=== PATIENT | male | born 1985 | race Caucasian/White ===

== ENCOUNTER 2018-10-03 19:12 | Emergency (ER) | payer MEDICAID ==
[~2018-10-03] VITALS: Ht 175.3 cm; Wt 106.7 kg
[2018-10-03 19:15] VITALS: BP 145/88
== END 2018-10-03 20:13 | disposition left against medical advice (07) ==
LOC: ER 19:13
DX: L03.113 Cellulitis of right upper limb (principal)
CPT/HCPCS: 99281

== ENCOUNTER 2018-11-15 13:05 | Inpatient (IN) | payer MEDICAID ==
[~2018-11-15] VITALS: Ht 175.3 cm; Wt 104.5 kg
[2018-11-15 14:01] LABS: ALANINE AMINOTRANSFERASE 39 U/L (12-78); ALBUMIN 3.6 G/DL (3.4-5.0); ALBUMIN/GLOBULIN RATIO 0.8 (1.1-1.5); ALKALINE PHOSPHATASE 100 IU/L (46-116); ANION GAP 12 (8-16); ASPARTATE AMINO TRANSFERASE 14 U/L (10-37); BILIRUBIN,TOTAL 0.2 MG/DL (0.1-1.0); BLOOD UREA NITROGEN 10 MG/DL (7-18); BUN/CREATININE RATIO 10.4 (5.4-32.0); CALCIUM 8.7 MG/DL (8.5-10.1); CHLORIDE 103 MMOL/L (99-107); CREATININE 0.96 MG/DL (0.60-1.10); GLUCOSE 120 MG/DL (70-104); LIPASE 88 U/L (73-393); PROTHROMBIN TIME 9.9 SECONDS (9.0-12.0); SODIUM 141 MMOL/L (135-145); TOTAL CARBON DIOXIDE 25.7 MMOL/L (24-32); TOTAL PROTEIN 7.9 G/DL (6.4-8.2); eGFR 90 ML/MIN
[2018-11-15 14:04] LABS: BASOPHILS # (AUTO) 0.1 X10'3 (0-0.2); BASOPHILS % (AUTO) 0.7 % (0-1); EOSINOPHILS # (AUTO) 0.4 X10'3 (0-0.9); EOSINOPHILS % (AUTO) 2.7 % (0-6); HEMATOCRIT 50.1 % (42.0-52.0); HEMOGLOBIN 16.4 g/dl (14.0-17.9); LYMPHOCYTES # (AUTO) 2.6 X10'3 (1.1-4.8); LYMPHOCYTES % (AUTO) 19.9 % (21-51); MEAN CORPUSCULAR HEMOGLOBIN 29.5 PG (27.0-31.0); MEAN CORPUSCULAR HGB CONC 32.6 % (33.0-36.5); MEAN CORPUSCULAR VOLUME 90.6 FL (78-98); MEAN PLATELET VOLUME 8.6 FL (7.4-10.4); MONOCYTES # (AUTO) 0.6 X10'3 (0-0.9); MONOCYTES % (AUTO) 4.9 % (2-12); NEUTROPHILS # (AUTO) 9.4 X10'3 (1.8-7.7); NEUTROPHILS % (AUTO) 71.8 % (42-75); PLATELET COUNT 390 X10'3 (140-440); RED BLOOD COUNT 5.53 X10'6 (4.70-6.10); RED CELL DISTRIBUTION WIDTH 12.3 % (11.5-14.5); WHITE BLOOD COUNT 13.1 X10'3 (4.5-11.0)
[2018-11-15 14:39] LABS: CLARITY,URINE CLEAR (Clear); COLOR,URINE STRAW (Yellow); GLUCOSE, URINE NEGATIVE (Neg); KETONES,URINE NEGATIVE (Neg); LEUKOCYTE ESTERASE ,URINE NEGATIVE (Neg); NITRITES, URINE NEGATIVE (Neg); OCCULT BLOOD,URINE NEGATIVE (Neg); PH,URINE 7.5 (4.8-8.0); PROTEIN,URINE NEGATIVE (Neg); UROBILINOGEN,URINE 0.2 E.U/dL (0.2-1.0)
[2018-11-15 14:41] LABS: UA COLLECTION TYPE CLN CATCH MIDSTREAM
[2018-11-15] MEDS ORDERED: normal saline 1000ML IV soln IVB ONE (15:15)
[2018-11-15] MEDS ORDERED: iohexol 300mg/ml 100ml inj. ONE (15:18)
[2018-11-15] MEDS ORDERED: ondansetron/PF 4mg/2ml inj IV ONE ×2 (15:35→16:45)
[2018-11-15] MEDS: morphine 4 MG/ML inj SYRINge IV PRN ×5 (16:05→20:15)
[2018-11-15] MEDS ORDERED: piperacillin/tazo 3.375gm/50ml 50 ML IV ONE (16:45)
--- NOTE | 2018-11-15 17:35 | NUR ---
pt c/o itching to IV site after giving morphine, no redness, pt is speaking full sentences, resp even and unlabored
--- NOTE | 2018-11-15 17:45 | NUR ---
itching has resolved, pt is resting quietly
--- NOTE | 2018-11-15 17:49 | NUR ---
pt is resting quietly on bed, waiting to be evaluated by hospitalist
[2018-11-15] MEDS ORDERED: NO HOME MEDS (18:02)
--- NOTE | 2018-11-15 18:07 | NUR ---
pt moved to room 4
[2018-11-15 18:12] LABS: URINE AMPHETAMINE SCREEN NEGATIVE (Neg); URINE BARBITUATE SCREEN NEGATIVE (Neg); URINE BENZODIAZEPINES SCREEN NEGATIVE (Neg); URINE CANNABINOID SCREEN NEGATIVE (Neg); URINE COCAINE SCREEN NEGATIVE (Neg); URINE METHADONE SCREEN NEGATIVE (Neg); URINE OPIATE SCREEN NEGATIVE (Neg); URINE PHENCYCLIDINE SCREEN NEGATIVE (Neg)
--- NOTE | 2018-11-15 18:58 | NUR ---
escobar oh [phone] mother
--- NOTE | 2018-11-15 19:10 | NUR ---
at bedside with dr. avila discussing surgical procedure with patient and family
[2018-11-15] MEDS ORDERED: morphine 4 MG/ML inj SYRINge IV PRN ×2 (19:25)
[2018-11-15] MEDS ORDERED: ondansetron/PF 4mg/2ml inj IV PRN (19:25)
[2018-11-15] MEDS: normal saline 1000ml 1,000 ML IV SCH (19:52)
[2018-11-15] MEDS: piperacillin/tazo 3.375gm/50ml 50 ML IV SCH (19:52)
[2018-11-15] MEDS ORDERED: ringers solution, lacted 1,000 ML IV ONE (20:10)
--- NOTE | 2018-11-15 22:35 | NUR ---
patient in bed covers on eyes closed lights dimmed no observable s/s of acute pain/stress at this time
--- NOTE | 2018-11-15 23:21 | NUR ---
PATIUENT PLACED ON HOSPITAL BED NO S/S OF ACUTE STRESS/PAIN AT THIS TIME
[2018-11-16] VITALS (22 sets, daily range): BP systolic 99–171; BP diastolic 50–103
[2018-11-16] MEDS: piperacillin/tazo 3.375gm/50ml 50 ML IV SCH ×3 (04:10→22:35)
--- NOTE | 2018-11-16 05:31 | NUR ---
Received report from OG Osman. Awaiting patient arrival to the unit.
--- NOTE | 2018-11-16 05:50 | NUR ---
Patient arrived to the floor on hospital bed. Placed in 347A. Patient is awake and alert on room air, in no apparent distress. Call light and items of frequent use within reach. Will continue to monitor.
[2018-11-16] MEDS ORDERED: famotidine 20mg tablet PO ONE (06:00)
--- NOTE | 2018-11-16 06:24 | NUR ---
Problems reprioritized. Patient report given, questions answered & plan of care reviewed with OG Arambula.
--- NOTE | 2018-11-16 06:24 | NUR ---
Patient in room [facility]. I have received report from OG Mccray and had the opportunity to ask questions and assume patient care.
[2018-11-16] MEDS ORDERED: epiNEPHrine 1 mg/ml inj ONE (06:41)
[2018-11-16] MEDS ORDERED: BUPIVAcaine/PF 2.5mg/ml (0.25%) 10ml vial ONE (06:42)
[2018-11-16] MEDS ORDERED: fentaNYL/PF 50MCG/1 ML 2ML syringe ONE (07:18)
[2018-11-16] MEDS ORDERED: midazolam 2 mg/2 ml injection ONE (07:18)
[2018-11-16] MEDS ORDERED: LIDOcaine 2% (20mg/ml) 5ml vial ONE (07:20)
[2018-11-16] MEDS ORDERED: propofol inj 20 ML IV ONE (07:20)
[2018-11-16] MEDS ORDERED: ondansetron/PF 4mg/2ml inj ONE (07:21)
[2018-11-16] MEDS ORDERED: dexamethasone sod phosphate 4mg/ml inj. ONE (07:21)
[2018-11-16] MEDS ORDERED: glycopyrrolate 0.2mg/ml inj ONE (07:21)
[2018-11-16] MEDS ORDERED: rocuronium 10mg/ml inj IV ONE (07:21)
[2018-11-16] MEDS ORDERED: ringers solution, lacted 1,000 ML IV SCH (07:23)
[2018-11-16] MEDS ORDERED: neostigmine methylsulfate 1 MG/ML 10ml vial ONE (07:24)
[2018-11-16] MEDS ORDERED: sevoflurane 250ml liquid IH ONE (07:24)
[2018-11-16] MEDS ORDERED: hydrALAZINE 20mg/ml inj. IV PRN (07:25)
[2018-11-16] MEDS ORDERED: fentaNYL/PF 50MCG/1 ML 2ML syringe IV PRN (07:25)
[2018-11-16] MEDS ORDERED: ondansetron/PF 4mg/2ml inj IV PRN (07:25)
[2018-11-16] MEDS ORDERED: labetalol 20mg/4ml (5mg/ml) syringe IV PRN (07:25)
[2018-11-16] MEDS ORDERED: morphine 4 MG/ML inj SYRINge IV PRN ×2 (07:25)
--- NOTE | 2018-11-16 08:31 | NUR ---
Received from OR via BED, accompanied by Anesthesiologist DR BOYD and report given by Anesthesiologist. PT W/3 LAP SITES W/BANDLANI STUART, PT MAICOL, CHLOE'S. Addendum: 11/16/18 at 0858 by Jackie Danielson RN Amended: Links added.
[2018-11-16] MEDS: morphine 4 MG/ML inj SYRINge IV PRN ×3 (08:37→08:42)
[2018-11-16] MEDS: fentaNYL/PF 50MCG/1 ML 2ML syringe IV PRN ×2 (08:56→09:05)
--- NOTE | 2018-11-16 09:55 | NUR ---
Received patient from OR, pt. drowsy but alert to place, self, and events, patient respirations even and unlabored, vital signs stable at BP 126/75, HR 80, O2 sats 95% on 2L O2 will continue to monitor.
--- NOTE | 2018-11-16 10:01 | NUR ---
Report called to receiving nurse. Transferred via BED, NO Belongings, RECEIVING RN AT BEDSIDE TO RECEIVE PT, BLL, CALL LIGHT GIVEN, SIDE RAILS UP X 2, S/O AT BEDSIDE. Special Issues communicated to receiving nurse. YES. Addendum: 11/16/18 at 1018 by Jackie Danielson RN Amended: Links added.
[2018-11-16] MEDS ORDERED: FLU VACC QUAD 2018(5 YR UP)/PF 60 MCG/0.5 ML SYRINGE IM ONE (11:05)
[2018-11-16] MEDS ORDERED: pneumococcal 23-VAL P-sac vacc 25 mcg/0.5ml vial IMVAC ONE (11:05)
[2018-11-16] MEDS: ketorolac trometh. 30mg/ml inj. IV PRN ×2 (11:53→18:48)
[2018-11-16] MEDS: normal saline 1000ml 1,000 ML IV SCH ×2 (15:21→16:09)
--- NOTE | 2018-11-16 18:34 | NUR ---
Patient in room [facility]. I have received report from Ralf FOLEY and had the opportunity to ask questions and assume patient care.
--- NOTE | 2018-11-16 18:34 | NUR ---
Problems reprioritized. Patient report given, questions answered & plan of care reviewed with OG Segovia.
[2018-11-17] VITALS: BP 108/58
[2018-11-17] MEDS: normal saline 1000ml 1,000 ML IV SCH (03:25)
[2018-11-17] MEDS: piperacillin/tazo 3.375gm/50ml 50 ML IV SCH ×2 (04:01→09:12)
[2018-11-17] MEDS: ketorolac trometh. 30mg/ml inj. IV PRN (04:09)
--- NOTE | 2018-11-17 06:20 | NUR ---
Problems reprioritized. Patient report given, questions answered & plan of care reviewed with Tiffany FOLEY.
--- NOTE | 2018-11-17 06:59 | NUR ---
Patient in room [facility]. I have received report from Juliette FOLEY and had the opportunity to ask questions and assume patient care.
[2018-11-17 07:23] VITALS: BP 105/51
--- NOTE | 2018-11-17 09:21 | NUR ---
paged regarding no PO pain medications ordered. Awaiting call back.
[2018-11-17] MEDS ORDERED: acetaminophen 325mg tablet PO PRN (10:15)
[2018-11-17] MEDS ORDERED: HYDROcodone/acetaminophen 5mg/325mg tablet PO PRN (10:15)
[2018-11-17] MEDS ORDERED: HYDR-4383 PO (10:19)
--- NOTE | 2018-11-17 10:57 | NUR ---
Discharge paperwork gone over with patient and signed. Patient discharged with all belongings. W/C to front lobby.
== END 2018-11-17 10:59 | disposition home or self-care (01) | DRG 234 ==
LOC: ER 13:06 → ED HOLD 19:21 → CMPBEDREQ 11-16 05:14 → SUR 3N 11-16 05:45
PROVIDERS: ADMIT Internal Medicine; ATTEND Family Medicine
PROC: BW211ZZ Computerized Tomography (CT Scan) of Abdomen and Pelvis using Low Osmolar Contrast (ICD-10-PCS; 2018-11-15)
PROC: 0DTJ4ZZ Resection of Appendix, Percutaneous Endoscopic Approach (ICD-10-PCS; principal; 2018-11-16 07:29)
DX: K35.80 Unspecified acute appendicitis (principal); F17.200 Nicotine dependence, unspecified, uncomplicated
CPT/HCPCS: 36415; 74177; 80053; 80305; 81003; 83690; 85025; 85610; 87070; 96361; 96365; 96375; 99285; A7000; G0378; J0171; J0360; J1100; J1885; J2001; J2250; J2270; J2405; J2543; J2704; J2710; J3010; J3490; J7030; J7120; Q2037; Q9967

== ENCOUNTER 2018-12-01 16:22 | Emergency (ER) | payer MEDICAID ==
[~2018-12-01 16:22] MED LIST: HYDR-4383 PO
== END 2018-12-01 18:21 | disposition left against medical advice (07) ==
LOC: ER 16:22
DX: T81.9XXA Unspecified complication of procedure, initial encounter (principal); Z53.21 Procedure and treatment not carried out due to patient leaving prior to being seen by health care provider